=== PATIENT | male | born 1970 | race Caucasian/White ===

== ENCOUNTER 2022-01-24 22:11 | Observation (INO) | payer BC, SELFPAY ==
--- NOTE | ~2022-01-24 | CT_ITS ---
EXAMINATION: CT abdomen pelvis w con DATE: 01/25/2022 06:48 INDICATION: Buttock and groin abscess. TECHNIQUE: Computed tomography (CT) of the abdomen and pelvis was performed with 100 mL Omnipaque 350 intravenous contrast. Automated exposure control and iterative reconstruction technique were employe d. The dose-length product was 984.58 mGy-cm. COMPARISON: CT abdomen and pelvis 04/27/2016 FINDINGS: The visualized portions of the lung bases demonstrate mild atelectasis. No pleural effusion . The heart size is normal. No pericardial effusion. The liver, gallbladder, spleen, pancreas, and ad renal glands are normal. There is a 1 mm stone in right kidney. Left kidney is normal. The prostate i s mildly enlarged. There are no dilated loops of bowel. The appendix is not visualized. There is mild right external iliac lymphadenopathy, likely reactive. There is no free intraperitoneal fluid. There is subcutaneous fat stranding in the right buttock and perineum. No soft tissue gas. No drainable ab scess. There is mild thoracolumbar spondylosis. IMPRESSION: 1. Fat stranding in the right buttock and perineum, consistent with cellulitis. No soft tissue gas or drainable abscess. 2. Mild right external iliac lymphadenopathy, likely reactive. Reviewed, dictated and finalized at location A. [facility] [employer] OPERATOR
[2022-01-24 22:29] VITALS: BP 175/110; PULSE 122; RESP 18; TEMP 36.6; O2SAT 100
[2022-01-25] MEDS: SODIUM CHLORIDE 0.9% IV 1,000 ML 999 ML IV CONT (05:54)
[2022-01-25] MEDS: MORPHINE SULFATE (*CRX) 4 MG/ML INJ IV PUSH ×2 (05:54→13:44)
[2022-01-25 06:10] LABS: Basophils Absolute Auto 0.2 K/mm3 (0.0-0.1); Basophils Percent Auto 0.9 % (0.2-1.2); Eosinophils Absolute Auto 0.1 K/mm3 (0-0.3); Eosinophils Percent Auto 0.8 % (0-4.4); Hematocrit 39.9 % (42.0-52.0); Immature Granulocyte Absolute 0.32 K/mm3 (0.00-0.031); Immature Granulocyte Percent A 1.8 % (0-0.5); Lymphocytes Absolute Auto 1.24 K/mm3 (0.9-3.2); Mean Corpuscular HGB Conc 35.1 g/dl (32-36); Mean Corpuscular Hemoglobin 30.2 pg (26-34); Mean Platelet Volume 10.2 fl (7.4-10.4); Monocytes Absolute Auto 1.8 K/mm3 (0.1-0.6); Neutrophils Absolute Auto 14.1 K/mm3 (1.3-6.7); Neutrophils Percent Auto 79.5 % (45.5-73.1); Platelet Count Result 254 k/mm3 (150-375); Red Blood Count 4.64 M/mm3 (4.6-6.20); Red Cell Distribution Width 12.4 % (11.5-14.5); White Blood Count 17.7 K/mm3 (4.5-10.0)
[2022-01-25 06:18] LABS: Lactic Acid Reflex 1.2 mmol/L (0.7-2.0)
[2022-01-25 06:19] LABS: Anion Gap 10 mmol/L (8-16); Blood Urea Nitrogen 18 mg/dL (9-20); Calcium 8.4 mg/dL (8.4-10.2); Carbon Dioxide 27 mmol/L (22-30); Chloride 96 mmol/L (98-107); Estimated CRCL calculation 90 ml/min; Estimated Glomerular Filt Rate > 60; Glucose 258 mg/dL (65-110); Potassium 3.1 mmol/L (3.4-5.0); Sodium 133 mmol/L (137-145)
[2022-01-25 06:46] VITALS: BP 166/95; PULSE 100; RESP 18; O2SAT 98
--- NOTE | 2022-01-25 07:26 | ED.SKABFB ---
HPI - Skin/Abscess/Foreign Bdy General Chief complaint: Skin/Abscess/Foreign Body Stated complaint: abcess Time Seen by Provider: 01/25/22 05:21 History of Present Illness HPI narrative: Patient is a 51-year-old male who presents ER with infection to his right buttock. It originally started as a pimple which then enlarged over the last 4 days. He has been having fevers and chills. Has significant swelling of his buttock and pain with movement and sitting. The area is currently draining. No difficulty with defecation. He does feel like he has to urinate frequently. Related Data Home Medications Medication Instructions Recorded Confirmed Adults Multivitamin 1 tablet PO DAILY 01/25/22 01/25/22 famotidine 20 mg tablet (Pepcid AC) 20 mg PO DAILY 01/25/22 01/25/22 Allergies Allergy/AdvReac Type Severity Reaction Status Date / Time levofloxacin Allergy Unknown Unknown Verified 01/25/22 05:54 meperidine Allergy Unknown Hives Verified 01/25/22 05:54 Penicillins Allergy Unknown Swelling Verified 01/25/22 05:54 of Lip/Tongue/Throat Quinolones Allergy Unknown Redness of Verified 01/25/22 05:54 Skin Sulfa (Sulfonamide Allergy Unknown Unknown Verified 01/25/22 07:29 Antibiotics) loratadine AdvReac Unknown PALPITATIO Verified 01/25/22 05:54 NS Review of Systems Review of Systems: All systems reviewed & are unremarkable except as noted in HPI and below Constitutional: Constitutional: Denies chills, Denies fatigue and Denies fever(s) ENT: Denies nasal congestion and Denies sore throat Cardiovascular: Cardiovascular: Denies chest pain, Denies rapid heart rate and Denies radiating jaw, neck or arm pain Respiratory: Respiratory: Denies cough and Denies dyspnea Gastrointestinal: Gastrointestinal: Denies abdominal pain, Denies nausea and Denies vomiting Genitourinary: Genitourinary: Denies dysuria and Reports urinary frequency Integumentary/Breasts: Skin/Breast: Reports erythema PMFSH Past Medical History Medical History (Updated 01/25/22 @ 08:01 by Ananth Guillen MD) No significant past medical history Surgical History Surgical History (Updated 01/25/22 @ 07:59 by Ananth Guillen MD) No pertinent past surgical history Family History Family History (System 01/08/21 @ 09:15 by Rogelio Nava) Father Family history of diabetes mellitus in first degree relative Mother Family history of heart disease in male family member before age 55 Social History Social History (System 01/08/21 @ 09:15 by Rogelio Nava) Smoking status: Never smoker Second hand tobacco smoke exposure: Yes Alcohol intake: current Drinks per week: 1 Substance use: never Lack of Transportation: No Lack of Food: Never True Current Housing: I Have Housing Concerned About Future Housing: No Difficulty Paying Gas/Electric Bills: No Difficulty Paying for Meds: No Currently Unemployed: No Education: Associate Degree Difficulty w/ Childcare or Family Care: No Spiritual care concerns: No Exam Narrative: GENERAL: Well-appearing, well-nourished, and in no acute distress. HEAD: Normocephalic, atraumatic. EYES: PERRL and EOMI. ENT: Mucous membranes moist. CHEST: Clear to auscultation. No respiratory distress. HEART: Regular rate and rhythm. Normal peripheral pulses. ABDOMEN: Soft, nontender, nondistended. Right buttock cellulitis extending into the perineum. There is a small area of drainage but no fluctuant abscess. No tenderness at the rectum. EXTREMITIES: Normal range of motion. No edema. SKIN: Warm, dry, no rash. NEURO: Alert and oriented x3. PSYCH: Normal mood and affect. Course Course Emergency Course: Admit to hospitalist service. IV antibiotics ordered. Vital Signs Vital signs: Vital Signs Temperature 97.9 F 01/24/22 22:29 Pulse Rate 122 H 01/24/22 22:29 Respiratory Rate 18 01/24/22 22:29 Blood Pressure 175/110 H 01/24/22 22:29 Pulse Oximetry 100 1
--- NOTE | 2022-01-25 07:36 | PM.SD2 ---
Same Day Admit/Disch: HPI History of Present Illness Chief complaint: Cellulitis Narrative: Ishan Bell III is a 51 year old male who presented with buttock cellulitis to the ER discussed with the ER doc . Was planned for admission however due to unavailability of bed she was transferred to [facility] for admission. I did not physically see the patient here in this hospital. [facility] Past Medical History Medical History (Updated 02/03/22 @ 15:02 by Doug Shields MD) No significant past medical history Surgical History Surgical History (Updated 01/25/22 @ 07:59 by Ananth Guillen MD) No pertinent past surgical history Family History Family History (System 01/08/21 @ 09:15 by Rogelio Nava) Father Family history of diabetes mellitus in first degree relative Mother Family history of heart disease in male family member before age 55 Social History Social History (Updated 02/03/22 @ 14:46 by Leonora Fernandez MA) Smoking status: Never smoker Second hand tobacco smoke exposure: Yes Alcohol intake: current Drinks per week: 1 Substance use: never Lack of Transportation: No Lack of Food: Never True Current Housing: I Have Housing Concerned About Future Housing: No Difficulty Paying Gas/Electric Bills: No Difficulty Paying for Meds: No Currently Unemployed: No Education: Associate Degree Difficulty w/ Childcare or Family Care: No Gender identity (if verbalized by the patient): Male Spiritual care concerns: No Same Day Admit/Disch: Med Pre-admit Medications Home Medications Medication Instructions Recorded Confirmed Type Adults Multivitamin 1 tablet PO DAILY 01/25/22 01/25/22 History famotidine 20 mg tablet (Pepcid AC) 20 mg PO DAILY 01/25/22 01/25/22 History Saccharomyces boulardii 250 mg 250 mg PO TID #30 caps 02/01/22 Rx capsule (Florastor) blood sugar diagnostic (Advocate #50 ea 02/01/22 Rx Test Strips) blood-glucose meter (Advocate #1 ea 02/01/22 Rx Blood Glucose Monitor) doxycycline hyclate 100 mg tablet 100 mg PO Q12HR #20 tabs 02/01/22 Rx insulin glargine 100 unit/mL (3 10 unit (0.1 mL) subcut QPM #15 mL 02/01/22 Rx mL) subcutaneous pen (Lantus Solostar U-100 Insulin) insulin lispro 100 unit/mL 1 sliding scale dose subcut 02/01/22 Rx subcutaneous solution (Humalog USEASDIRECTD #10 mL U-100 Insulin) insulin syringe-needle U-100 1 mL #100 ea 02/01/22 Rx 25 x 1 lancets 30 gauge (Advocate Lancet) #100 ea 02/01/22 Rx metronidazole 250 mg tablet 500 mg PO Q8HR #21 tabs 02/01/22 Rx potassium chloride 20 mEq 40 meq PO DAILY@0800 #14 tabs 02/01/22 Rx tablet,extended release (K-Tab) tamsulosin 0.4 mg capsule 0.4 mg PO QAM #30 caps 02/01/22 Rx tramadol 50 mg tablet 50 mg PO Q6H PRN Pain Rated 4-6 02/01/22 Rx #20 tabs Ozempic 0.25 mg or 0.5 mg (2 0.25 mg (0.2 mL) subcut WEEKLY #3 02/03/22 02/03/22 Rx mg/1.5 mL) subcutaneous pen mL injector (semaglutide) hydrocodone 5 mg-acetaminophen 325 1 tablet PO Q8H PRN pain #14 tabs 02/03/22 02/03/22 Rx mg tablet metformin 1,000 mg tablet 1,000 mg PO BID #180 tabs 02/03/22 02/03/22 Rx Exam Narrative: Not examined DS: Summary Hospital Course Hospital Course: Got report from the ED doctor for admission and was started on IV antibiotics. He was getting boarded in the ER however due to unavailability of bed and availability of bed at [facility] decision was made to transfer the patient there. A call report to nurse practitioner at [facility] and she accepted the transfer. He was eventually transferred to [facility]. I did not physically see the patient Time Spent with Patient Time attestation: Total time spent providing and/or coordinating discharge services: 20 minutes DS: Admitting Diagnosis Discharge Date 01/25/22 Admitting Diagnosis Buttock cellulitis Discharge Plan Discharge Consulting providers: Zoran Rankin ; Blair Nazario
[2022-01-25] MEDS: metroNIDAZOLE 500 MG/ISO 100ML 500 MG/100 ML BAG 100 MG IVPB (08:05)
[2022-01-25] MEDS: HYDROmorphone HCL INJ (*CRX) 1 MG/ML SYR IV PUSH (08:15)
[2022-01-25 08:40] LABS: Influenza A QL RT-PCR Negative (Negative); Influenza B QL RT-PCR Negative (Negative); SARS-CoV-2 RNA PCR Negative
--- NOTE | 2022-01-25 13:12 | PC.NURSE ---
Report call to Stephanie at [facility] second floor.
[2022-01-25 13:46] VITALS: BP 150/99; PULSE 100; RESP 22; O2SAT 100
== END 2022-01-25 14:00 | disposition short-term general hospital (02) ==
LOC: ANHED 01-25 08:00 → ANH3MEDSUR 01-25 10:24
PROVIDERS: Admitting Provider Internal Medicine; Emergency Provider Emergency Medicine; Visit Provider Internal Medicine
DX: L03.317 Cellulitis of buttock (principal); R59.1 Generalized enlarged lymph nodes; R35.0 Frequency of micturition; F10.90 Alcohol use, unspecified, uncomplicated; Z79.4 Long term (current) use of insulin; Z79.84 Long term (current) use of oral hypoglycemic drugs; Z79.899 Other long term (current) drug therapy; Z87.891 Personal history of nicotine dependence
CPT/HCPCS: 36415; 74177; 80048; 83036; 83605; 85025; 87636; 96361; 96365; 96366; 96367; 96368; 96375; 96376; 99285; G0378; J0692; J1170; J2270; J3370; J7030; Q9967

== ENCOUNTER 2022-01-25 14:34 | Inpatient (IN) | payer BC, SELFPAY ==
--- NOTE | 2022-01-25 14:42 | PC.NURSE ---
Patient oriented to hospital environment, room number, call light, visitor policies, and use of television. Patient advised on precautions to use when leaving the room. Patient has a blue cap and cell phone and no other valuable possessions present at the hospital.
[2022-01-25 14:43] VITALS: BP 165/95; PULSE 93; RESP 16; TEMP 37.4; O2SAT 96; BMI 36.3
--- NOTE | 2022-01-25 15:55 | PC.NURSE ---
Patient arrived to [facility] via ambulance, accompanied by grey goods tester. Patient able to transfer independently from stretcher to bed.
[2022-01-25 16:00] VITALS: BP 135/75; PULSE 93; RESP 16; TEMP 36.9; O2SAT 94
[2022-01-25] MEDS: HYDROmorphone HCL INJ (*CRX) 2 MG/ML VIAL 1 MG IV PUSH ×3 (16:32→23:38)
--- NOTE | 2022-01-25 17:24 | PC.NURSE ---
Patient has a large area of cellulitis starting in the inner right buttock and winding down between the patient's legs on the right side of the groin area. Area is red, hot and moist. Patient c/o severe pain to the area. IV ABT and pain medications continue.
[2022-01-26] VITALS: BP 137/74; PULSE 92; RESP 16; TEMP 38.1; O2SAT 98
[2022-01-26] MEDS: HYDROmorphone HCL INJ (*CRX) 2 MG/ML VIAL 1 MG IV PUSH (03:21)
[2022-01-26] MEDS: HYDROcodone/acetaminophen (*CRX) 10-325 MG TABLET 1 TAB PO ×4 (04:55→18:37)
[2022-01-26 05:28] LABS: Hematocrit 38.5 % (40.0-54.0); Hemoglobin 13.6 g/dL (14.0-18.0); Mean Corpuscular HGB Conc 35.3 g/dL (32.0-36.0); Mean Corpuscular Hemoglobin 30.2 pg (27.0-31.0); Mean Corpuscular Volume 85.4 fL (78.0-102.0); Mean Platelet Volume 10.3 fl (8.7-11.0); Platelet Count Result 267 K/mm3 (150-420); Red Blood Count 4.51 M/mm3 (4.70-6.10); Red Cell Distribution Width 11.9 % (11.6-14.4); White Blood Count 19.8 K/mm3 (4.8-10.8)
[2022-01-26 05:54] LABS: Alanine Aminotransferase 43 U/L (16-63); Albumin Level 2.9 g/dL (3.4-5.0); Alkaline Phosphatase 236 U/L (46-116); Anion Gap 13 mmol/L (8-16); Aspartate Amino Transferase 36 U/L (15-37); Bilirubin,Total 0.9 mg/dL (0.00-1.00); Blood Urea Nitrogen 15 mg/dL (7-18); Calcium 8.5 mg/dL (8.5-10.1); Carbon Dioxide 27 mmol/L (21-32); Chloride 93 mmol/L (98-108); Estimated CRCL calculation 85 ml/min; Estimated Glomerular Filt Rate > 60; Glucose 252 mg/dL (70-99); Magnesium 1.8 mg/dL (1.8-2.4); Osmolality Calculated 285 mOsm/kg (285-295); Potassium 2.9 mmol/L (3.5-5.1); Sodium 133 mmol/L (136-145); Total Protein 7.4 g/dL (6.4-8.2)
[2022-01-26 08:00] VITALS: BP 164/100; PULSE 84; RESP 18; TEMP 36.6; O2SAT 95
--- NOTE | 2022-01-26 08:48 | PM.IMHP ---
H&P: HPI History of Present Illness Date/Time: 01/26/22 08:48 Chief Complaint: pain and drainage to right cheek of the buttocks Narrative: This iis a 50-year-old male who presented to [facility] due to pain and drainage on his right cheek of his buttocks. Patient has no significant past medical history. According to patient he had a pimple to his right buttocks. patient notes that on Tuesday he started to experience flu like symptoms such as chills, body aches, fever 105 and noticed that the site to his right cheek had enlarged in size in heart and was tender to touch., . Patient's vital signs 137/74, 92, 16, 100.6, 98 on room air, WBC 17.7, hemoglobin 14.0, hematocrit 39.9, platelets 254, sodium 133, potassium 3.1, BUN 18, creatinine 1.00, lactic acid 1.2, glucose 28 CT of the abdomen indicates right buttocks and perineum cellulitis no drainable abscess. Patient admitted for cellulitis will be given IV antibiotic treatment with pain control. patient continues to have pain to his buttocks area but is reluctant to take any pain medication due to his fear of having constipation. patient educated on pain control Review of Systems Review of Systems: A 14 organ system Review of Systems was performed and pertinent positives included in the HPI, otherwise remaining ROS is negative. [facility] Past Medical History Medical History (Updated 01/26/22 @ 10:02 by URBANO Montano) No significant past medical history Surgical History Surgical History (Updated 01/25/22 @ 07:59 by Ananth Guillen MD) No pertinent past surgical history Family History Family History (System 01/08/21 @ 09:15 by Rogelio Nava) Father Family history of diabetes mellitus in first degree relative Mother Family history of heart disease in male family member before age 55 Social History Social History (System 01/08/21 @ 09:15 by Rogelio Nava) Smoking status: Never smoker Second hand tobacco smoke exposure: Yes Alcohol intake: current Drinks per week: 1 Substance use: never Lack of Transportation: No Lack of Food: Never True Current Housing: I Have Housing Concerned About Future Housing: No Difficulty Paying Gas/Electric Bills: No Difficulty Paying for Meds: No Currently Unemployed: No Education: Associate Degree Difficulty w/ Childcare or Family Care: No Spiritual care concerns: No Meds Home Medications and Allergies Home Medications Medication Instructions Recorded Confirmed Type Adults Multivitamin 1 tablet PO DAILY 01/25/22 01/25/22 History famotidine 20 mg tablet (Pepcid AC) 20 mg PO DAILY 01/25/22 01/25/22 History Allergies Allergy/AdvReac Type Severity Reaction Status Date / Time levofloxacin Allergy Unknown Unknown Verified 01/25/22 05:54 meperidine Allergy Unknown Hives Verified 01/25/22 05:54 Penicillins Allergy Unknown Swelling Verified 01/26/22 09:56 of Lip/Tongue/Throat Quinolones Allergy Unknown Redness of Verified 01/25/22 05:54 Skin Sulfa (Sulfonamide Allergy Unknown Unknown Verified 01/25/22 07:29 Antibiotics) loratadine AdvReac Unknown PALPITATIO Verified 01/25/22 05:54 NS Vital Signs Vital Signs - 24 hr 01/25/22 14:43 01/25/22 14:43 01/25/22 16:00 Temperature 99.3 F 98.4 F Pulse Rate 93 93 Respiratory Rate 16 16 Blood Pressure 165/95 H 135/75 Pulse Oximetry 96 94 Oxygen Delivery Room Air Room Air Room Air 01/26/22 00:00 Temperature 100.6 F H Pulse Rate 92 Respiratory Rate 16 Blood Pressure 137/74 Pulse Oximetry 98 Oxygen Delivery Room Air Exam Narrative: GENERAL: This is a well-nourished, well-developed patient, in no apparent distress. HEAD: normocephalic, atraumatic. EYES: PERRL. Sclera clear/white. Vision is grossly intact. EARS: External ears normal, auditory canals clear and without drainage, TMs normal without perforation. Hearing grossly intact. NOSE: External nose normal with no obvious
[2022-01-26] MEDS: SACCHAROMYCES BOULARDII 250 MG CAPSULE PO ×3 (09:26→16:44)
[2022-01-26] MEDS: FAMOTIDINE 20 MG TABLET PO (09:27)
--- NOTE | 2022-01-26 09:58 | PC.NURSE ---
Patient cleansed own buttocks in bathroom and applied 4x4 himself to keep drainage in place, wound culture obtained, norco given for pain, to call if not helping and will assess what else can be given, vanco infusing
--- NOTE | 2022-01-26 11:04 | P.PNCROSS_ITS ---
Event Note Event Note Event Note: patient will start on Jardiance , will not start glipizide due to allergy to s ulfa
--- NOTE | 2022-01-26 11:22 | IDPHARM ---
Subjective Pharmacy was consulted by Álvaro Paul regarding infectious diseases for Ishan Bell III. Ishan Bell III is a 51 year old M with concerns regarding Cellulitis. Background The patient is currently receiving Vancomycin at this time but also had received metronidazole and cefepime in the ER per the provider. The patient's PMH included having a pimple on their bottom that has then popped with the cellulitis remaining. Patient reported fever and flu like symptoms at home and has a WBC of 19.8 here with a CrCl estimated to be >60 mL/min. Assessment/Recommendation/Discussion Spoke with the provider regarding this patient. Patient has cellulitis with previous purulence. Continue vancomycin as to cover staphylococcus spp. and less likely streptococcus species. Given patient allergies, options are limited, perhaps look to de-escalate to a tetracycline when appropriate if appropriate. If the patient does not approve can consider re-broadening with those agents given in the ER as, per provider, the patient had tolerated them. Thank you for the interesting consult. Almas Cox, PharmD Infectious Disease/Antimicrobial Stewardship Pharmacist 01/26/22; 1121
[2022-01-26] MEDS: POTASSIUM CHLORIDE 20 MEQ TABLET 40 MEQ PO (11:26)
[2022-01-26] MEDS: DOCUSATE SODIUM 100 MG CAPSULE PO ×2 (11:27→20:23)
[2022-01-26 11:30] LABS: Glucose Point of Care 321 mg/dl (65-105)
--- NOTE | 2022-01-26 11:39 | PC.NURSE ---
changed from observation to IP status, education on diabetes and jardiance given to patient to review
[2022-01-26] MEDS: traMADol HCL (*CRX) 50 MG TABLET PO ×2 (12:37→20:23)
[2022-01-26 16:00] VITALS: BP 134/72; PULSE 78; RESP 18; TEMP 36.1; O2SAT 96
[2022-01-26 16:46] LABS: Glucose Point of Care 274 mg/dl (65-105)
[2022-01-26 20:38] LABS: Glucose Point of Care 309 mg/dl (65-105)
[2022-01-26 20:40] LABS: Vancomycin Trough 8.3 ug/mL (10.0-15.0)
[2022-01-26 22:35] LABS: Glucose Point of Care 258 mg/dl (65-105)
[2022-01-26 23:30] VITALS: BP 129/74; PULSE 91; RESP 16; TEMP 36.2; O2SAT 98
[2022-01-27] MEDS: HYDROcodone/acetaminophen (*CRX) 10-325 MG TABLET 1 TAB PO ×5 (00:18→19:32)
[2022-01-27] MEDS: traMADol HCL (*CRX) 50 MG TABLET PO ×2 (05:08→23:16)
[2022-01-27 05:31] LABS: Hematocrit 37.7 % (40.0-54.0); Mean Corpuscular HGB Conc 34.5 g/dL (32.0-36.0); Mean Corpuscular Hemoglobin 29.1 pg (27.0-31.0); Mean Corpuscular Volume 84.5 fL (78.0-102.0); Mean Platelet Volume 9.9 fl (8.7-11.0); Platelet Count Result 279 K/mm3 (150-420); Red Blood Count 4.46 M/mm3 (4.70-6.10); Red Cell Distribution Width 11.9 % (11.6-14.4); White Blood Count 16.8 K/mm3 (4.8-10.8)
[2022-01-27 05:48] LABS: Alanine Aminotransferase 47 U/L (16-63); Albumin Level 2.6 g/dL (3.4-5.0); Alkaline Phosphatase 234 U/L (46-116); Anion Gap 11 mmol/L (8-16); Aspartate Amino Transferase 31 U/L (15-37); Bilirubin,Total 0.8 mg/dL (0.00-1.00); Blood Urea Nitrogen 15 mg/dL (7-18); Calcium 8.3 mg/dL (8.5-10.1); Carbon Dioxide 28 mmol/L (21-32); Chloride 94 mmol/L (98-108); Estimated CRCL calculation 92 ml/min; Estimated Glomerular Filt Rate > 60; Glucose 279 mg/dL (70-99); Osmolality Calculated 286 mOsm/kg (285-295); Potassium 3.3 mmol/L (3.5-5.1); Sodium 133 mmol/L (136-145); Total Protein 7.2 g/dL (6.4-8.2)
[2022-01-27 08:00] VITALS: BP 134/74; PULSE 78; RESP 16; TEMP 36.6; O2SAT 96
[2022-01-27 08:05] LABS: Glucose Point of Care 321 mg/dl (65-105)
[2022-01-27] MEDS: SACCHAROMYCES BOULARDII 250 MG CAPSULE PO ×3 (09:05→17:31)
[2022-01-27] MEDS: ENOXAPARIN 40 MG/0.4 ML SYRINGE SUB-Q (09:05)
[2022-01-27] MEDS: POTASSIUM CHLORIDE 20 MEQ TABLET 40 MEQ PO (09:06)
[2022-01-27] MEDS: EMPAGLIFLOZIN 10 MG TABLET PO (09:07)
[2022-01-27] MEDS: DOCUSATE SODIUM 100 MG CAPSULE PO ×2 (09:07→20:20)
[2022-01-27] MEDS: FAMOTIDINE 20 MG TABLET PO (09:07)
--- NOTE | 2022-01-27 13:43 | WPDPN ---
Progress Note: A&P Assessment and Plan (1) Cellulitis: Code(s): L03.90 - Cellulitis, unspecified Status: Acute Assessment and Plan: imaging indicates right buttock and perineum cellulitis patient was given Flagyl along with vancomycin and cefepime in the emergency department. patient has allergy to penicillin did not have a reaction to cefepime. if patient condition did not improve we were asked that the pain. consult Infectious Disease and assist as recommendations for now we will do vancomycin patient febrile with elevated white count 17.7>19.8 continue wound care lactic acid 1.2 sitz bath (2) Electrolyte imbalance: Code(s): E87.8 - Other disorders of electrolyte and fluid balance, not elsewhere classified Status: Acute Assessment and Plan: potassium 2.9 , sodium 133 replaces supplement CMP in a.m. (3) Diabetes mellitus: Code(s): E11.9 - Type 2 diabetes mellitus without complications Status: Acute Assessment and Plan: newly diagnosed A1c 11.0, blood sugar 252 started diabetic diet with Accu-Cheks sliding scale and hypoglycemic protocol will start glipizide educated on diabetes will need to follow up with primary care physician increased insulin and added lantus Subjective Date/time seen: 01/27/22 13:43 Interval history: patient still having a lot of pain and difficulty with some urination more than likely due to then go Urgent med causing pressure when he is not able to urinate appropriately Rollins catheter has been added. I have also sent a urine down just to make sure there is no infection going on. Patient was found to have some retention 800 mL postvoid. Patient has been doing Sitz bath we will continue with IV antibiotics blood sugar control and monitoring. Awaiting wound culture results will plan for possible halfway antibiotic Exam Narrative: GENERAL: This is a well-nourished, well-developed patient, in no apparent distress. HEAD: normocephalic, atraumatic. EYES: PERRL. Sclera clear/white. Vision is grossly intact. EARS: External ears normal, auditory canals clear and without drainage, TMs normal without perforation. Hearing grossly intact. NOSE: External nose normal with no obvious nasal discharge, nares without redness, no rhinorrhea. THROAT: Mucous membranes moist, posterior pharynx clear. NECK: Neck supple, non-tender without lymphadenopathy, masses or thyromegaly. CARDIOVASCULAR: Regular rate and rhythm without murmurs, gallops, or rubs. RESPIRATORY: Clear to auscultation. Breath sounds equal bilaterally. No wheezes, rales, or rhonchi. GASTROINTESTINAL: Abdomen soft, non-tender, buttock swollen escorted enlarged and engorged in groin area SKIN: right buttock and perineum with edema and erythema tender to touch brownish drainage NEURO: awake, alert, and oriented to person, place and time. There were no obvious focal neurologic abnormalities. EXTREMITIES: Normal range of motion. No edema. No calf tenderness. Objective Data Vital Signs Vital Signs: Vital Signs - 24 hr 01/26/22 16:00 01/26/22 23:30 Temperature 97 F L 97.2 F L Pulse Rate 78 91 Respiratory Rate 18 16 Blood Pressure 134/72 129/74 Pulse Oximetry 96 98 Oxygen Delivery Room Air Room Air Intake/Output Intake/Output: Intake & Output 01/24/22 01/25/22 01/26/22 01/27/22 23:59 23:59 23:59 23:59 Intake Total 1090 3170 2010 Output Total 1200 125 Balance 1090 1970 1885 Meds/Results Medications: Active Medications Generic Name Dose Route Start Last Admin Trade Name Freq PRN Reason Stop Dose Admin Acetaminophen 1,000 mg 01/25/22 15:27 Acetaminophen 500 Mg Tablet PO Q4H PRN Mild Pain (1-3) or Fever Hydrocodone Bitart/Acetaminophen 1 tab 01/26/22 08:47 01/27/22 13:40 Hydrocodone/Acetaminophen (*Crx) 10-325 Mg Tablet PO 1 tab Q4H PRN Administration Pain Rated 7-10 Dextrose 12.5 gm 01/27/22
[2022-01-27 15:17] LABS: Add Urine Microscopic? YES; Appearance Urine Clear (Clear); Bilirubin Urine Negative (Negative); Blood Urine Negative (Negative); Color Urine Yellow (Yellow); Glucose Urine UA 2+ (Negative); Ketones Urine 2+ (Negative); Leukocyte Esterase Ur Negative LEU/UL (Negative); Nitrate Urine Negative (Negative); Protein Urine Negative (Negative); Urobilinogen Urine 0.2 mg/dL (0.2-1.0)
[2022-01-27 15:30] LABS: Bacteria Urine Trace /hpf; RBC Urine None seen /hpf (0-2); Squamous Epithelial Cell Urine Few /hpf (Few); WBC Urine None seen /hpf (0-3)
[2022-01-27 15:31] LABS: Mucus Urine Few /lpf
[2022-01-27 16:00] VITALS: BP 128/74; PULSE 90; RESP 18; TEMP 37.3; O2SAT 97
[2022-01-27 16:34] LABS: Glucose Point of Care 182 mg/dl (65-105)
--- NOTE | 2022-01-27 18:05 | PC.NURSE ---
patient c/o this am that he had a lot of pressure and discomfort in lower abd. voided x's in urinal with only 200 ml dk richelle urine. pain meds not touching pain. r buttock into scrotum remains bright red and purple can feel heat and firmness from scrotum back into r buttock. at this time there is no drainage. metal machine setter aware and new orders. bladder scanned and 887 ml urine in bladder. schilling inserted with immediate return of 1250 ml of richelle urine. patient claims some relief in abd. sitz bath done this am. claims it feels good. still no drainage at this time. there is sloughing of skin noted. cont to lay on r side. did pack gauze into cheek fold. after lunch patient has slept most afternoon. denies need for pain meds this evening after supper. still very tender to touch. patient claims at times there is slight drainage of brownish/red/white area is cleansed and new gauze applied.
[2022-01-27] MEDS: INSULIN GLARGINE (*BKC) 100 UNITS/ML 10 UNITS SUB-Q (20:20)
[2022-01-27 20:24] LABS: Glucose Point of Care 235 mg/dl (65-105)
[2022-01-27 21:23] LABS: Vancomycin Trough 15.2 ug/mL (10.0-15.0)
[2022-01-27] MEDS: traZODone HCL 50 MG TABLET 100 MG PO (23:15)
[2022-01-28] VITALS: BP 149/81; PULSE 91; RESP 17; TEMP 36.4; O2SAT 96
[2022-01-28] MEDS: HYDROcodone/acetaminophen (*CRX) 10-325 MG TABLET 1 TAB PO ×4 (03:52→19:29)
[2022-01-28 08:00] VITALS: BP 145/76; PULSE 96; RESP 16; TEMP 36.1; O2SAT 98
[2022-01-28 08:58] LABS: Glucose Point of Care 194 mg/dl (65-105)
[2022-01-28] MEDS: POTASSIUM CHLORIDE 20 MEQ TABLET 40 MEQ PO (09:10)
[2022-01-28] MEDS: SACCHAROMYCES BOULARDII 250 MG CAPSULE PO ×3 (09:10→17:38)
[2022-01-28] MEDS: ENOXAPARIN 40 MG/0.4 ML SYRINGE SUB-Q (09:10)
[2022-01-28] MEDS: DOCUSATE SODIUM 100 MG CAPSULE PO ×2 (09:11→20:56)
[2022-01-28] MEDS: FAMOTIDINE 20 MG TABLET PO (09:11)
[2022-01-28] MEDS: EMPAGLIFLOZIN 10 MG TABLET PO (09:14)
[2022-01-28] MEDS: LIDOCAINE HCL 1% LOCAL INJ 10 ML VIAL XX (10:30)
[2022-01-28] MEDS: HYDROmorphone HCL INJ (*CRX) 2 MG/ML VIAL 1 MG IV PUSH (10:45)
[2022-01-28 11:37] LABS: Hematocrit 38.6 % (40.0-54.0); Hemoglobin 13.9 g/dL (14.0-18.0); Mean Corpuscular Hemoglobin 30.2 pg (27.0-31.0); Mean Corpuscular Volume 83.7 fL (78.0-102.0); Mean Platelet Volume 9.6 fl (8.7-11.0); Platelet Count Result 337 K/mm3 (150-420); Red Blood Count 4.61 M/mm3 (4.70-6.10); White Blood Count 16.6 K/mm3 (4.8-10.8)
[2022-01-28] MEDS: traMADol HCL (*CRX) 50 MG TABLET PO ×2 (11:51→18:16)
--- NOTE | 2022-01-28 11:56 | WPDPN ---
Progress Note: A&P Assessment and Plan (1) Cellulitis: Code(s): L03.90 - Cellulitis, unspecified Status: Acute Assessment and Plan: imaging indicates right buttock and perineum cellulitis patient was given Flagyl along with vancomycin and cefepime in the emergency department. patient has allergy to penicillin did not have a reaction to cefepime. if patient condition did not improve we were asked that the pain. consult Infectious Disease and assist as recommendations for now we will do vancomycin patient febrile with elevated white count 17.7>19.8 continue wound care lactic acid 1.2 sitz bath ID today see procedure note (2) Electrolyte imbalance: Code(s): E87.8 - Other disorders of electrolyte and fluid balance, not elsewhere classified Status: Acute Assessment and Plan: potassium 2.9 , sodium 133 replaces supplement CMP in a.m. (3) Diabetes mellitus: Code(s): E11.9 - Type 2 diabetes mellitus without complications Status: Acute Assessment and Plan: newly diagnosed A1c 11.0, blood sugar 252 started diabetic diet with Accu-Cheks sliding scale and hypoglycemic protocol will start glipizide educated on diabetes will need to follow up with primary care physician increased insulin and added lantus Subjective Date/time seen: 01/28/22 11:56 Interval history: This is a 51-year-old male who has cellulitis of the right buttocks that is inflamed with erythema that is fluctuant and painful draining some brown is pus at this time the decision has been made to do an I&D patient has signed consent. Review of Systems Review of Systems: right buttocks erythema Exam Narrative: GENERAL: This is a well-nourished, well-developed patient, in no apparent distress. HEAD: normocephalic, atraumatic. EYES: PERRL. Sclera clear/white. Vision is grossly intact. EARS: External ears ghazala Hearing grossly intact. NOSE: External nose normal with no obvious nasal discharge THROAT: Mucous membranes moist RESPIRATORY: Clear to auscultation. Breath sounds equal bilaterally. No wheezes, rales, or rhonchi. GASTROINTESTINAL: Abdomen soft, non-tender, buttock swollen escorted enlarged and engorged in groin area SKIN: right buttock and perineum with edema and erythema tender to touch brownish drainage NEURO: awake, alert, and oriented to person, place and time. There were no obvious focal neurologic abnormalities. EXTREMITIES: Normal range of motion. No edema. No calf tenderness. Objective Data Vital Signs Vital Signs: Vital Signs - 24 hr 01/27/22 16:00 01/28/22 00:00 01/28/22 08:00 Temperature 99.2 F 97.5 F L 97 F L Pulse Rate 90 91 96 Respiratory Rate 18 17 16 Blood Pressure 128/74 149/81 H 145/76 H Pulse Oximetry 97 96 98 Oxygen Delivery Room Air Room Air Room Air Intake/Output Intake/Output: Intake & Output 01/25/22 01/26/22 01/27/22 01/28/22 23:59 23:59 23:59 23:59 Intake Total 1090 3170 5330 2610 Output Total 1200 3625 2200 Balance 1090 1970 1705 410 Meds/Results Medications: Active Medications Generic Name Dose Route Start Last Admin Trade Name Freq PRN Reason Stop Dose Admin Acetaminophen 1,000 mg 01/25/22 15:27 Acetaminophen 500 Mg Tablet PO Q4H PRN Mild Pain (1-3) or Fever Hydrocodone Bitart/Acetaminophen 1 tab 01/26/22 08:47 01/28/22 09:11 Hydrocodone/Acetaminophen (*Crx) 10-325 Mg Tablet PO 1 tab Q4H PRN Administration Pain Rated 7-10 Dextrose 12.5 gm 01/27/22 11:22 Dextrose 50% 25 Gm/50 Ml Syringe IV PUSH PRN PRN Hypoglycemia Protocol Docusate Sodium 100 mg 01/26/22 09:00 01/28/22 09:11 Docusate Sodium 100 Mg Capsule PO 100 mg Q12HR JO Administration Empagliflozin 10 mg 01/27/22 09:00 01/28/22 09:14 Empagliflozin 10 Mg Tablet PO 10 mg DAILY JO Administration Enoxaparin Sodium 40 mg 01/26/22 09:00 01/28/22 09:10 Enoxaparin
[2022-01-28 11:59] LABS: Glucose Point of Care 177 mg/dl (65-105)
[2022-01-28 12:02] LABS: Anion Gap 12 mmol/L (8-16); Blood Urea Nitrogen 15 mg/dL (7-18); Calcium 8.6 mg/dL (8.5-10.1); Carbon Dioxide 27 mmol/L (21-32); Chloride 96 mmol/L (98-108); Estimated CRCL calculation 89 ml/min; Estimated Glomerular Filt Rate > 60; Glucose 197 mg/dL (70-99); Osmolality Calculated 285 mOsm/kg (285-295); Potassium 3.4 mmol/L (3.5-5.1); Sodium 135 mmol/L (136-145)
--- NOTE | 2022-01-28 12:02 | PM.EVENT ---
Event Note Event Note Event Note: PRE-OP DIAGNOSIS: Cellulitis of right buttock POST-OP DIAGNOSIS: Same PROCEDURE: incision and drainage of abscess Performing Physician:Mirna MAYBERRY Consent form filled out by patient PROCEDURE: A timeout protocol was performed prior to initiating the procedure. The area was prepared and draped in the usual, sterile manner. The site was anesthetized with 1% lidocaine 2 linear incision along the local skin lines was made and the purulent with dark drainage material expressed. The abscess was explored thoroughly and sequestered pockets were opened. Bleeding was minimal. Followup: The patient tolerated the procedure well without complications. Standard post-procedure care is explained precautions are given.
[2022-01-28 16:00] VITALS: BP 136/79; PULSE 99; RESP 18; TEMP 36.3; O2SAT 100
[2022-01-28 17:13] LABS: Glucose Point of Care 213 mg/dl (65-105)
[2022-01-28 19:14] VITALS: TEMP 36.3
[2022-01-28 19:46] VITALS: PULSE 99; RESP 18; O2SAT 100
[2022-01-28] MEDS: LORazepam INJ (*CRX) 2 MG/ML VIAL 1 MG IV PUSH (20:55)
[2022-01-28] MEDS: traZODone HCL 50 MG TABLET 100 MG PO (20:56)
[2022-01-28 21:00] LABS: Glucose Point of Care 202 mg/dl (65-105)
[2022-01-28] MEDS: INSULIN GLARGINE (*BKC) 100 UNITS/ML 10 UNITS SUB-Q (22:51)
[2022-01-29] VITALS: BP 148/82; PULSE 106; RESP 16; TEMP 36.7; O2SAT 98
[2022-01-29] MEDS: traMADol HCL (*CRX) 50 MG TABLET PO ×3 (03:08→20:51)
[2022-01-29 05:30] LABS: Estimated CRCL calculation 84 ml/min; Estimated Glomerular Filt Rate > 60
[2022-01-29] MEDS: HYDROcodone/acetaminophen (*CRX) 10-325 MG TABLET 1 TAB PO ×4 (05:30→21:30)
[2022-01-29 08:00] VITALS: BP 132/73; PULSE 101; RESP 16; TEMP 36.5; O2SAT 93
[2022-01-29 08:42] LABS: Glucose Point of Care 216 mg/dl (65-105)
[2022-01-29] MEDS: POTASSIUM CHLORIDE 20 MEQ TABLET 40 MEQ PO (10:01)
[2022-01-29] MEDS: EMPAGLIFLOZIN 10 MG TABLET PO (10:01)
[2022-01-29] MEDS: SACCHAROMYCES BOULARDII 250 MG CAPSULE PO ×3 (10:01→17:22)
[2022-01-29] MEDS: ENOXAPARIN 40 MG/0.4 ML SYRINGE SUB-Q (10:02)
[2022-01-29] MEDS: FAMOTIDINE 20 MG TABLET PO (10:02)
[2022-01-29] MEDS: DOCUSATE SODIUM 100 MG CAPSULE PO (10:02)
[2022-01-29 11:28] LABS: Hematocrit 38.9 % (40.0-54.0); Hemoglobin 13.3 g/dL (14.0-18.0); Mean Corpuscular HGB Conc 34.2 g/dL (32.0-36.0); Mean Corpuscular Volume 87.8 fL (78.0-102.0); Mean Platelet Volume 10.1 fl (8.7-11.0); Platelet Count Result 339 K/mm3 (150-420); Red Blood Count 4.43 M/mm3 (4.70-6.10); Red Cell Distribution Width 12.4 % (11.6-14.4); White Blood Count 18.9 K/mm3 (4.8-10.8)
[2022-01-29 11:38] LABS: Alanine Aminotransferase 59 U/L (16-63); Albumin Level 2.7 g/dL (3.4-5.0); Alkaline Phosphatase 248 U/L (46-116); Anion Gap 12 mmol/L (8-16); Aspartate Amino Transferase 36 U/L (15-37); Bilirubin,Total 0.7 mg/dL (0.00-1.00); Blood Urea Nitrogen 14 mg/dL (7-18); Calcium 8.4 mg/dL (8.5-10.1); Carbon Dioxide 25 mmol/L (21-32); Chloride 95 mmol/L (98-108); Estimated CRCL calculation 84 ml/min; Estimated Glomerular Filt Rate > 60; Glucose 155 mg/dL (70-99); Osmolality Calculated 277 mOsm/kg (285-295); Potassium 3.5 mmol/L (3.5-5.1); Sodium 132 mmol/L (136-145); Total Protein 7.3 g/dL (6.4-8.2)
[2022-01-29 11:47] LABS: Glucose Point of Care 176 mg/dl (65-105)
--- NOTE | 2022-01-29 13:59 | WPDPN ---
Progress Note: A&P Assessment and Plan (1) Cellulitis: Code(s): L03.90 - Cellulitis, unspecified Status: Acute Assessment and Plan: imaging indicates right buttock and perineum cellulitis patient was given Flagyl along with vancomycin and cefepime in the emergency department. patient has allergy to penicillin did not have a reaction to cefepime. if patient condition did not improve we were asked that the pain. consult Infectious Disease and assist as recommendations for now we will do vancomycin patient febrile with elevated white count 17.7>19.8 continue wound care lactic acid 1.2 sitz bath ID today see procedure note Culture shows MRSA and VAncomycin is adequate treatment for CS (2) Electrolyte imbalance: Code(s): E87.8 - Other disorders of electrolyte and fluid balance, not elsewhere classified Status: Acute Assessment and Plan: potassium 2.9 , sodium 133 replaces supplement CMP in a.m. (3) Diabetes mellitus: Code(s): E11.9 - Type 2 diabetes mellitus without complications Status: Acute Assessment and Plan: newly diagnosed A1c 11.0, blood sugar 252 started diabetic diet with Accu-Cheks sliding scale and hypoglycemic protocol will start glipizide educated on diabetes will need to follow up with primary care physician increased insulin and added lantus Subjective Date/time seen: 01/29/22 13:59 Interval history: patient remains afebrile and he has less swelling noted with his cellulitis and continues to have less swelling. Patient pain is less and he has been showering and allowing the fluids to flow down each night at this time patient is resting well and drinking plenty of fluids we will remove schilling in the morning to see if he is able to urinate he has MRSA growing at this time. Exam Narrative: GENERAL: This is a well-nourished, well-developed patient, in no apparent distress. HEAD: normocephalic, atraumatic. EYES: PERRL. Sclera clear/white. Vision is grossly intact. EARS: External ears ghazala Hearing grossly intact. NOSE: External nose normal with no obvious nasal discharge THROAT: Mucous membranes moist RESPIRATORY: Clear to auscultation. Breath sounds equal bilaterally. No wheezes, rales, or rhonchi. GASTROINTESTINAL: Abdomen soft, non-tender, buttock swollen escorted enlarged and engorged area is bruised and boggy not as swollen in groin area schilling remains in place with clear yellow urine note.d SKIN: right buttock and perineum with edema and erythema tender to touch brownish drainage NEURO: awake, alert, and oriented to person, place and time. There were no obvious focal neurologic abnormalities. EXTREMITIES: Normal range of motion. No edema. No calf tenderness. Objective Data Vital Signs Vital Signs: Vital Signs - 24 hr 01/28/22 16:00 01/28/22 19:14 01/28/22 19:46 Temperature 97.4 F L 97.4 F L Pulse Rate 99 99 Respiratory Rate 18 18 Blood Pressure 136/79 Pulse Oximetry 100 100 Oxygen Delivery Room Air Room Air 01/29/22 00:00 01/29/22 08:00 Temperature 98.0 F 97.7 F Pulse Rate 106 H 101 H Respiratory Rate 16 16 Blood Pressure 148/82 H 132/73 Pulse Oximetry 98 93 Oxygen Delivery Room Air Room Air Intake/Output Intake/Output: Intake & Output 01/26/22 01/27/22 01/28/22 01/29/22 23:59 23:59 23:59 23:59 Intake Total 3170 5330 5890 2940 Output Total 1200 3625 5300 2750 Balance 1970 1705 590 190 Meds/Results Medications: Active Medications Generic Name Dose Route Start Last Admin Trade Name Freq PRN Reason Stop Dose Admin Acetaminophen 1,000 mg 01/25/22 15:27 Acetaminophen 500 Mg Tablet PO Q4H PRN Mild Pain (1-3) or Fever Hydrocodone Bitart/Acetaminophen 1 tab 01/26/22 08:47 01/29/22 11:22 Hydrocodone/Acetaminophen (*Crx) 10-325 Mg Tablet PO 1 tab Q4H PRN Administration Pain Rated 7-10 Dextrose 12.5 gm 01/27/22 11:22 Dextrose 50% 2
[2022-01-29 16:00] VITALS: BP 151/80; PULSE 100; RESP 18; TEMP 36.8; O2SAT 96
[2022-01-29 17:18] LABS: Glucose Point of Care 209 mg/dl (65-105)
[2022-01-29] MEDS: INSULIN GLARGINE (*BKC) 100 UNITS/ML 10 UNITS SUB-Q (21:04)
[2022-01-29 21:05] LABS: Glucose Point of Care 189 mg/dl (65-105)
[2022-01-29] MEDS: LORazepam INJ (*CRX) 2 MG/ML VIAL 1 MG IV PUSH (21:32)
[2022-01-30] VITALS: BP 156/69; PULSE 94; RESP 18; TEMP 36.5; O2SAT 100
[2022-01-30] MEDS: HYDROcodone/acetaminophen (*CRX) 10-325 MG TABLET 1 TAB PO ×5 (02:29→23:03)
--- NOTE | 2022-01-30 04:08 | PC.NURSE ---
Patient called for nurse to bring 2 sheets and 2 blankets to him. Entered room and patient stood for bed to be changed due to drainage from right buttock. Total bed change done. Large amount of thick, yellow/bloody drainage noted on pad, top and bottom sheets. When patient stood for bed to be changed the drainage was running down his legs. Patient then got in shower while bed was changed. Patient stated there was a large amount of drainage that came out of buttock in the shower. Wound started draining again before patient could get laid down and once he did lay down and nurse was cleaning the wound, the drainage continued in a large amount. Patient's right buttock didn't look as large as earlier in the shift. The deep redness continues to the area. Extra absorbent pad placed on bed and ABD placed over draining area. Patient tolerated well. Call light in reach.
--- NOTE | 2022-01-30 06:04 | PC.NURSE ---
Went to patient's room to discontinue schilling catheter and patient requests that it be left in until right after this dose of Vancomycin is finished.
--- NOTE | 2022-01-30 07:10 | PC.NURSE ---
Hogshead Hand removed 16 fr schilling catheter. Patient tolerated well. Hogshead Hand educated patient to void in urinal and use call light to let nurse measure urine to ensure patient was no longer having trouble voiding.
[2022-01-30 07:50] LABS: Glucose Point of Care 210 mg/dl (65-105)
[2022-01-30 08:00] VITALS: BP 138/78; PULSE 91; RESP 16; TEMP 36.2; O2SAT 95
[2022-01-30 08:33] LABS: Hematocrit 42.1 % (40.0-54.0); Hemoglobin 14.8 g/dL (14.0-18.0); Mean Corpuscular HGB Conc 35.2 g/dL (32.0-36.0); Mean Corpuscular Volume 85.2 fL (78.0-102.0); Mean Platelet Volume 9.4 fl (8.7-11.0); Platelet Count Result 379 K/mm3 (150-420); Red Blood Count 4.94 M/mm3 (4.70-6.10); Red Cell Distribution Width 11.9 % (11.6-14.4)
[2022-01-30 08:38] LABS: White Blood Count 22.9 K/mm3 (4.8-10.8)
[2022-01-30] MEDS: ENOXAPARIN 40 MG/0.4 ML SYRINGE SUB-Q (08:40)
[2022-01-30] MEDS: SACCHAROMYCES BOULARDII 250 MG CAPSULE PO ×3 (08:43→16:57)
[2022-01-30] MEDS: POTASSIUM CHLORIDE 20 MEQ TABLET 40 MEQ PO (08:43)
[2022-01-30] MEDS: FAMOTIDINE 20 MG TABLET PO (08:44)
[2022-01-30] MEDS: EMPAGLIFLOZIN 10 MG TABLET PO (08:45)
[2022-01-30 08:50] LABS: Alanine Aminotransferase 55 U/L (16-63); Alkaline Phosphatase 263 U/L (46-116); Anion Gap 11 mmol/L (8-16); Aspartate Amino Transferase 33 U/L (15-37); Bilirubin,Total 0.9 mg/dL (0.00-1.00); Blood Urea Nitrogen 15 mg/dL (7-18); Calcium 8.6 mg/dL (8.5-10.1); Carbon Dioxide 27 mmol/L (21-32); Chloride 94 mmol/L (98-108); Estimated CRCL calculation 81 ml/min; Estimated Glomerular Filt Rate > 60; Glucose 195 mg/dL (70-99); Osmolality Calculated 279 mOsm/kg (285-295); Potassium 3.5 mmol/L (3.5-5.1); Sodium 132 mmol/L (136-145); Total Protein 8.5 g/dL (6.4-8.2)
[2022-01-30 11:42] LABS: Glucose Point of Care 154 mg/dl (65-105)
[2022-01-30] MEDS: metroNIDAZOLE 500 MG/ISO 100ML 500 MG/100 ML BAG 100 MG IVPB ×2 (12:09→19:57)
[2022-01-30 13:39] LABS: Add Urine Microscopic? YES; Appearance Urine Clear (Clear); Bilirubin Urine Negative (Negative); Blood Urine 2+ (Negative); Color Urine Light Yellow (Yellow); Glucose Urine UA 3+ (Negative); Ketones Urine 2+ (Negative); Leukocyte Esterase Ur Negative (Negative); Nitrate Urine Negative (Negative); Protein Urine Negative (Negative)
[2022-01-30 13:45] LABS: Bacteria Urine Trace /hpf; WBC Urine None seen /hpf (0-3)
--- NOTE | 2022-01-30 14:47 | PC.NURSE ---
1215 schilling inserted without diff. immediate return of 800 ml yellow urine. tolerated well. chucky rn
--- NOTE | 2022-01-30 15:07 | WPDPN ---
Progress Note: A&P Assessment and Plan (1) Cellulitis: Code(s): L03.90 - Cellulitis, unspecified Status: Acute Assessment and Plan: imaging indicates right buttock and perineum cellulitis patient was given Flagyl along with vancomycin and cefepime in the emergency department. patient has allergy to penicillin did not have a reaction to cefepime. if patient condition did not improve we were asked that the pain. consult Infectious Disease and assist as recommendations for now we will do vancomycin patient febrile with elevated white count 17.7>19.8 continue wound care lactic acid 1.2 sitz bath ID today see procedure note Culture shows MRSA and VAncomycin is adequate treatment for CS Added Flagyl (2) Electrolyte imbalance: Code(s): E87.8 - Other disorders of electrolyte and fluid balance, not elsewhere classified Status: Acute Assessment and Plan: potassium 2.9 , sodium 133 replaces supplement CMP in a.m. (3) Diabetes mellitus: Code(s): E11.9 - Type 2 diabetes mellitus without complications Status: Acute Assessment and Plan: newly diagnosed A1c 11.0, blood sugar 252 started diabetic diet with Accu-Cheks sliding scale and hypoglycemic protocol will start glipizide educated on diabetes will need to follow up with primary care physician increased insulin and added lantus (4) Urine retention: Code(s): R33.9 - Retention of urine, unspecified Status: Acute Assessment and Plan: Schilling removed and replaced post residual of 800 mls may need to discharge with catheter. Subjective Date/time seen: 01/30/22 15:07 Interval history: Patient scrotum area is looking a lot better with copious amount of drainage noted with the showers 2-3 x a day. We have added Flagyl to patient for possible some anerobic coverage to ensure there is nothing else growing today his WBC went up to 22.9 although he is showing no s/s of worsening infection. Patient states the pain is a lot better and he claim that he is feeling better and questioning as to when he is leaving. we will consider possible tomorrow not sure at this time. Patient schilling was removed and he has not been able to urinate. I did bladder scan him post urinate and he had over 800 ml noted. Schilling placed back and will more than likey need to be discharged with schilling catheter in place and follow up with urology at this time. Patient continues to improve he is eating and drinking at this time. blood sugars are the high of 216 and as low as 154 we will continue to monitor and to improve patient. Exam Narrative: GENERAL: This is a well-nourished, well-developed patient, in no apparent distress. HEAD: normocephalic, atraumatic. EYES: PERRL. Sclera clear/white. Vision is grossly intact. EARS: External ears ghazala Hearing grossly intact. NOSE: External nose normal with no obvious nasal discharge THROAT: Mucous membranes moist RESPIRATORY: Clear to auscultation. Breath sounds equal bilaterally. No wheezes, rales, or rhonchi. GASTROINTESTINAL: Abdomen soft, non-tender, buttock swollen escorted enlarged and engorged area is bruised and boggy not as swollen in groin area schilling remains in place with clear yellow urine note.d SKIN: right buttock and perineum with edema and erythema tender to touch brownish drainage NEURO: awake, alert, and oriented to person, place and time. There were no obvious focal neurologic abnormalities. EXTREMITIES: Normal range of motion. No edema. No calf tenderness. Objective Data Vital Signs Vital Signs: Vital Signs - 24 hr 01/29/22 16:00 01/30/22 00:00 01/30/22 08:00 Temperature 98.3 F 97.7 F Pulse Rate 100 94 91 Respiratory Rate 18 18 16 Blood Pressure 151/80 H 156/69 H Pulse Oximetry 96 100 95 Oxygen Delivery Room Air Room Air Room Air 01/30/22 08:00 Temperature 97.2 F L Pulse Rate 91 Respiratory Rate 16 Blood Pressure 138/78 Pulse Oxi
[2022-01-30 16:00] VITALS: PULSE 90; RESP 16; TEMP 36.6; O2SAT 96
[2022-01-30 16:57] LABS: Glucose Point of Care 229 mg/dl (65-105)
--- NOTE | 2022-01-30 17:17 | PC.NURSE ---
Patient's wound continues to drain copious amounts of serous puss. Patient has showered x3 and has 1 full bed change and multiple clean sheets and pads. Area around wound continues to shrink.
[2022-01-30] MEDS: traMADol HCL (*CRX) 50 MG TABLET PO (19:56)
[2022-01-30 21:14] LABS: Vancomycin Trough 19.7 ug/mL (10.0-15.0)
[2022-01-30] MEDS: INSULIN GLARGINE (*BKC) 100 UNITS/ML 10 UNITS SUB-Q (21:18)
[2022-01-30] MEDS: LORazepam INJ (*CRX) 2 MG/ML VIAL 1 MG IV PUSH (21:18)
[2022-01-30] MEDS: DOCUSATE SODIUM 100 MG CAPSULE PO (21:19)
[2022-01-30 21:38] LABS: Glucose Point of Care 186 mg/dl (65-105)
[2022-01-30 23:14] VITALS: BP 143/85; PULSE 94; RESP 16; TEMP 36.3; O2SAT 96
[2022-01-31] MEDS: metroNIDAZOLE 500 MG/ISO 100ML 500 MG/100 ML BAG 100 MG IVPB (03:20)
[2022-01-31] MEDS: HYDROcodone/acetaminophen (*CRX) 10-325 MG TABLET 1 TAB PO ×4 (03:38→20:52)
--- NOTE | 2022-01-31 03:42 | PC.NURSE ---
Pt called nurses station stating he quite a bit of drainage from his wound. Pt ambulated independently to the shower to clean himself off while this RN changed the bed linens w/clean, dry ones. Pt complained of pain once finished w/his shower, and so was given a prn pain med per his pain score. Soiled linens removed from room and pt was brought fresh ice water. Side railsx2 and call light w/in reach w/bed in lowest position for pt safety.
[2022-01-31 05:34] LABS: Hematocrit 38.7 % (40.0-54.0); Hemoglobin 13.6 g/dL (14.0-18.0); Mean Corpuscular HGB Conc 35.1 g/dL (32.0-36.0); Mean Corpuscular Hemoglobin 29.9 pg (27.0-31.0); Mean Corpuscular Volume 85.1 fL (78.0-102.0); Mean Platelet Volume 9.6 fl (8.7-11.0); Platelet Count Result 315 K/mm3 (150-420); Red Blood Count 4.55 M/mm3 (4.70-6.10); Red Cell Distribution Width 11.8 % (11.6-14.4); White Blood Count 16.2 K/mm3 (4.8-10.8)
[2022-01-31 05:47] LABS: Anion Gap 8 mmol/L (8-16); Blood Urea Nitrogen 14 mg/dL (7-18); Calcium 8.2 mg/dL (8.5-10.1); Carbon Dioxide 26 mmol/L (21-32); Chloride 95 mmol/L (98-108); Estimated CRCL calculation 88 ml/min; Estimated Glomerular Filt Rate > 60; Glucose 173 mg/dL (70-99); Osmolality Calculated 272 mOsm/kg (285-295); Potassium 3.2 mmol/L (3.5-5.1); Sodium 129 mmol/L (136-145)
[2022-01-31 08:00] VITALS: BP 134/75; PULSE 97; RESP 17; TEMP 36.3; O2SAT 96
[2022-01-31] MEDS: EMPAGLIFLOZIN 10 MG TABLET PO (08:57)
[2022-01-31] MEDS: SACCHAROMYCES BOULARDII 250 MG CAPSULE PO ×3 (08:57→16:58)
[2022-01-31] MEDS: FAMOTIDINE 20 MG TABLET PO (08:57)
[2022-01-31] MEDS: POTASSIUM CHLORIDE 20 MEQ TABLET 40 MEQ PO (08:57)
[2022-01-31] MEDS: ENOXAPARIN 40 MG/0.4 ML SYRINGE SUB-Q (08:58)
[2022-01-31 12:02] LABS: Glucose Point of Care 170 mg/dl (65-105)
--- NOTE | 2022-01-31 13:10 | WPDPN ---
Progress Note: A&P Assessment and Plan (1) Cellulitis: Code(s): L03.90 - Cellulitis, unspecified Status: Acute Assessment and Plan: imaging indicates right buttock and perineum cellulitis patient was given Flagyl along with vancomycin and cefepime in the emergency department. patient has allergy to penicillin did not have a reaction to cefepime. if patient condition did not improve we were asked that the pain. consult Infectious Disease and assist as recommendations for now we will do vancomycin patient febrile with elevated white count 17.7>19.8 continue wound care lactic acid 1.2 sitz bath ID today see procedure note Culture shows MRSA and VAncomycin is adequate treatment for CS Added Flagyl changed to oral antibiotic s (2) Electrolyte imbalance: Code(s): E87.8 - Other disorders of electrolyte and fluid balance, not elsewhere classified Status: Acute Assessment and Plan: potassium 2.9 , sodium 133 replaces supplement CMP in a.m. (3) Diabetes mellitus: Code(s): E11.9 - Type 2 diabetes mellitus without complications Status: Acute Assessment and Plan: newly diagnosed A1c 11.0, blood sugar 252 started diabetic diet with Accu-Cheks sliding scale and hypoglycemic protocol will start glipizide educated on diabetes will need to follow up with primary care physician increased insulin and added lantus (4) Urine retention: Code(s): R33.9 - Retention of urine, unspecified Status: Acute Assessment and Plan: Schilling removed and replaced post residual of 800 mls may need to discharge with catheter. Subjective Date/time seen: 01/31/22 13:10 Interval history: Patient is being required to inject himself with insulin and we are discussing plans for home and he has been place on oral medication and will see how his wound does in the morning for plans for discharge in the morning. Exam Narrative: GENERAL: This is a well-nourished, well-developed patient, in no apparent distress. HEAD: normocephalic, atraumatic. EYES: PERRL. Sclera clear/white. Vision is grossly intact. EARS: External ears ghazala Hearing grossly intact. NOSE: External nose normal with no obvious nasal discharge THROAT: Mucous membranes moist RESPIRATORY: Clear to auscultation. Breath sounds equal bilaterally. No wheezes, rales, or rhonchi. GASTROINTESTINAL: Abdomen soft, non-tender, buttock swollen escorted enlarged and engorged area is bruised and boggy not as swollen in groin area schilling remains in place with clear yellow urine note.d SKIN: right buttock and perineum with edema and erythema tender to touch brownish drainage NEURO: awake, alert, and oriented to person, place and time. There were no obvious focal neurologic abnormalities. EXTREMITIES: Normal range of motion. No edema. No calf tenderness. Objective Data Vital Signs Vital Signs: Vital Signs - 24 hr 01/30/22 16:00 01/30/22 23:14 01/31/22 08:00 Temperature 97.9 F 97.4 F L 97.3 F L Pulse Rate 90 94 97 Respiratory Rate 16 16 17 Blood Pressure 143/85 H 134/75 Pulse Oximetry 96 96 96 Oxygen Delivery Room Air Room Air Room Air Intake/Output Intake/Output: Intake & Output 01/28/22 01/29/22 01/30/22 01/31/22 23:59 23:59 23:59 23:59 Intake Total 5890 4440 5750 1170 Output Total 5300 6350 5950 1675 Balance 590 -9840 -200 -505 Meds/Results Medications: Active Medications Generic Name Dose Route Start Last Admin Trade Name Freq PRN Reason Stop Dose Admin Acetaminophen 1,000 mg 01/25/22 15:27 Acetaminophen 500 Mg Tablet PO Q4H PRN Mild Pain (1-3) or Fever Hydrocodone Bitart/Acetaminophen 1 tab 01/26/22 08:47 01/31/22 08:57 Hydrocodone/Acetaminophen (*Crx) 10-325 Mg Tablet PO 1 tab Q4H PRN Administration Pain Rated 7-10 Dextrose 12.5 gm 01/27/22 11:22 Dextrose 50% 25 Gm/50 Ml Syringe IV PUSH PRN PRN Hypoglycemia
[2022-01-31] MEDS: TAMSULOSIN HCL 0.4 MG CAPSULE PO (13:11)
[2022-01-31] MEDS: metroNIDAZOLE 250 MG TABLET 500 MG PO ×2 (13:11→20:51)
[2022-01-31 16:00] VITALS: BP 137/84; PULSE 97; TEMP 36.1; O2SAT 96
[2022-01-31 16:45] LABS: Glucose Point of Care 198 mg/dl (65-105)
[2022-01-31] MEDS: traMADol HCL (*CRX) 50 MG TABLET PO (19:02)
[2022-01-31 20:00] VITALS: PULSE 97; RESP 17; O2SAT 96
[2022-01-31] MEDS: DOXYCYCLINE HYCLATE 100 MG TABLET PO (20:52)
[2022-01-31] MEDS: traZODone HCL 50 MG TABLET 100 MG PO (20:52)
[2022-01-31] MEDS: INSULIN GLARGINE (*BKC) 100 UNITS/ML 10 UNITS SUB-Q (21:00)
[2022-01-31 21:01] LABS: Glucose Point of Care 146 mg/dl (65-105)
[2022-01-31 23:56] VITALS: BP 154/83; PULSE 106; RESP 17; TEMP 36.3; O2SAT 96
[2022-02-01] MEDS: HYDROcodone/acetaminophen (*CRX) 10-325 MG TABLET 1 TAB PO ×3 (01:19→09:36)
[2022-02-01 05:08] LABS: Hematocrit 42.5 % (40.0-54.0); Hemoglobin 14.7 g/dL (14.0-18.0); Mean Corpuscular HGB Conc 34.6 g/dL (32.0-36.0); Mean Corpuscular Hemoglobin 29.6 pg (27.0-31.0); Mean Corpuscular Volume 85.7 fL (78.0-102.0); Mean Platelet Volume 9.8 fl (8.7-11.0); Platelet Count Result 436 K/mm3 (150-420); Red Blood Count 4.96 M/mm3 (4.70-6.10); Red Cell Distribution Width 11.9 % (11.6-14.4); White Blood Count 15.3 K/mm3 (4.8-10.8)
[2022-02-01] MEDS: metroNIDAZOLE 250 MG TABLET 500 MG PO ×2 (05:17→12:09)
[2022-02-01 05:19] LABS: Anion Gap 12 mmol/L (8-16); Blood Urea Nitrogen 18 mg/dL (7-18); Calcium 8.8 mg/dL (8.5-10.1); Carbon Dioxide 26 mmol/L (21-32); Chloride 98 mmol/L (98-108); Estimated CRCL calculation 74 ml/min; Estimated Glomerular Filt Rate 57; Glucose 188 mg/dL (70-99); Osmolality Calculated 288 mOsm/kg (285-295); Potassium 3.8 mmol/L (3.5-5.1); Sodium 136 mmol/L (136-145)
[2022-02-01] MEDS: DOCUSATE SODIUM 100 MG CAPSULE PO (05:20)
[2022-02-01 08:00] VITALS: BP 142/81; PULSE 98; RESP 16; TEMP 36.6; O2SAT 97
[2022-02-01 09:04] LABS: Prostate Specific Antigen 0.7 ng/mL (< OR = 4.0)
[2022-02-01] MEDS: EMPAGLIFLOZIN 10 MG TABLET PO (09:35)
[2022-02-01] MEDS: SACCHAROMYCES BOULARDII 250 MG CAPSULE PO ×2 (09:35→12:09)
[2022-02-01] MEDS: DOXYCYCLINE HYCLATE 100 MG TABLET PO (09:36)
[2022-02-01] MEDS: FAMOTIDINE 20 MG TABLET PO (09:36)
[2022-02-01] MEDS: TAMSULOSIN HCL 0.4 MG CAPSULE PO (09:36)
[2022-02-01] MEDS: POTASSIUM CHLORIDE 20 MEQ TABLET 40 MEQ PO (09:36)
--- NOTE | 2022-02-01 10:41 | PM.DS ---
DS: Admitting Diagnosis Discharge Date 02/01/2022 Admitting Diagnosis Cellulitis w abscess left buttock, New onset Diabetes Type II DS: Discharge Diagnosis Discharge Diagnosis (1) Urine retention: Code(s): R33.9 - Retention of urine, unspecified Status: Acute Assessment and Plan: Rollins removed and replaced post residual of 800 mls may need to discharge with catheter. teching on how to care for catheter and leg bag (2) Diabetes mellitus: Code(s): E11.9 - Type 2 diabetes mellitus without complications Status: Acute Assessment and Plan: newly diagnosed A1c 11.0, blood sugar 252 started diabetic diet with Accu-Cheks sliding scale and hypoglycemic protocol will start glipizide educated on diabetes will need to follow up with primary care physician increased insulin and added lantus needs to follow up reid (3) Electrolyte imbalance: Code(s): E87.8 - Other disorders of electrolyte and fluid balance, not elsewhere classified Status: Acute Assessment and Plan: potassium 2.9 , sodium 133 replaces supplement CMP in a.m. resolving (4) Cellulitis: Code(s): L03.90 - Cellulitis, unspecified Status: Acute Assessment and Plan: imaging indicates right buttock and perineum cellulitis patient was given Flagyl along with vancomycin and cefepime in the emergency department. patient has allergy to penicillin did not have a reaction to cefepime. if patient condition did not improve we were asked that the pain. consult Infectious Disease and assist as recommendations for now we will do vancomycin patient febrile with elevated white count 17.7>19.8>15 continue wound care lactic acid 1.2 sitz bath ID today see procedure note Culture shows MRSA and VAncomycin is adequate treatment for CS Added Flagyl changed to oral antibiotic s labs continue to improve wound looks good drainage is well Wound Clinic Appointment on February 15 (5) Abscess of left buttock: Code(s): L02.31 - Cutaneous abscess of buttock Status: Acute Assessment and Plan: Incision and drainage 2x2 applied to butt cheeks someone to monitor you wound to ensure it not worsening continue shower frequently Take all of your medication Plan Patient not wanting us to schedule appointment I have had a long conversation with patient about his follow up care and my concern if he does not follow up and the importance. Patient explained he is worried about the cost. I explained to patient that this could be detrimental to the rest of his life. DS: Summary Hospital Course Reason for hospitalization: new onset diabetes type 2, cellulitis with abscess urinary retention Hospital Course: this is a 51-year-old male that was admitted to the hospital with new onset diabetes type 2 hemoglobin A1c was 11.6. Patient was admitted with the left-sided buttocks abscess with the elevated white blood count that initially was 22 patient was febrile prior to arrival that came down with oral antipyretics. Patient was treated with IV fluids, IV antibiotics vancomycin and eventually started on Flagyl patient had wound culture that came back positive for Staph coccus aureus which sensitivity showed that was treated with vancomycin I personally completed incision and drainage which started to drink copious amount brownish foul-smelling secretions closer to his scrotum. Patient has several episodes where he started to have trouble urinating was only urinating approximately 50-100 cc of urine at a time postvoid bladder scan showed over 800 mL of Marilin urine. Once Rollins catheter was placed he had almost a L of fluid 2 attempts were noted to remove the Rollins catheter and retention remain patient was started on oral Flomax and will need to follow up with Urology. Patient also was started on Lantus as well as some Jardiance and insulin blood sugars prior to discharge range
[2022-02-01 11:43] LABS: Glucose Point of Care 220 mg/dl (65-105)
--- NOTE | 2022-02-01 14:40 | PC.NURSE ---
Discharge instructions reviewed with patient and sister. They were educated on schilling care, leg bag use, and medications. All questions were answered. Pt was transported via wheelchair to front of hospital for discharge.
--- NOTE | 2022-02-02 11:30 | PCCCNOTE ---
Pt called and states he has accepting PCP but not able to be seen until 02/25/2022. Pt requests help finding someone to see him and take his schilling cath out. Per Ellen Shields was on-call at [facility] when pt was seen in ED and he would see him for a 1 time visit. Appt made for 02/03/2022 at 1430 at the office located at [address] [place] [address] . Pt was called back and give appointment information, location and phone number.
--- NOTE | 2022-02-03 09:47 | PC.NURSE ---
Pt states he received and understood his discharge instructions. Pt has no other comments.
[2022-02-23 15:31] LABS: Glucose Point of Care 195 mg/dl (65-105)
== END 2022-02-01 14:45 | disposition home or self-care (01) | DRG 603 ==
PROVIDERS: Nurse Practitioner; Admitting Provider Internal Medicine; Visit Provider Nurse Practitioner Family
DX: L03.317 Cellulitis of buttock (principal); L03.315 Cellulitis of perineum; E11.9 Type 2 diabetes mellitus without complications; E87.8 Other disorders of electrolyte and fluid balance, not elsewhere classified; B95.62 Methicillin resistant Staphylococcus aureus infection as the cause of diseases classified elsewhere; R33.9 Retention of urine, unspecified
CPT/HCPCS: 36415; 80048; 80053; 80202; 81001; 82565; 82948; 83735; 84153; 85027; 87070; 87147; 87186; 87205; 97161; 97165; A9270; G0378; J1170; J1650; J1815; J2060; J3370

== ENCOUNTER 2022-02-03 15:26 | Outpatient (CLI) | payer BC, SELFPAY ==
[2022-02-03 18:41] LABS: Alanine Aminotransferase 74 U/L (6-50); Albumin Level 4.4 g/dL (3.5-5.1); Alkaline Phosphatase 223 U/L (38-126); Anion Gap 11 mmol/L (8-16); Aspartate Amino Transferase 82 U/L (17-59); Bilirubin,Total 0.6 mg/dL (0.2-1.3); Blood Urea Nitrogen 23 mg/dL (9-20); Carbon Dioxide 26 mmol/L (22-30); Chloride 100 mmol/L (98-107); Estimated Glomerular Filt Rate > 60; Glucose 250 mg/dL (65-110); Potassium 4.6 mmol/L (3.4-5.0); Sodium 137 mmol/L (137-145)
[2022-02-03 18:46] LABS: Add Urine Microscopic? YES; Appearance Urine Cloudy (Clear); Bilirubin Urine Negative (Negative); Blood Urine 2+ (Negative); Color Urine Light Yellow (Yellow); Glucose Urine UA 3+ mg/dL (Negative); Ketones Urine 1+ mg/dL (Negative); Leukocyte Esterase Ur Negative LEU/UL (NEGATIVE); Nitrate Urine Negative (Negative); Protein Urine Trace mg/dL (Negative); Specific Grav Ur 1.025 (1.001-1.035); Urobilinogen Urine 0.2 mg/dL (<2.0); pH Urine 5.5 (5.0-9.0)
[2022-02-03 19:15] LABS: Bacteria Urine Trace /hpf; Mucus Urine Rare /lpf; RBC Urine >75 /hpf (0-2); Uric Acid Crystals Urine Many /hpf; WBC Urine 0-3 /hpf (0-3)
== END 2022-02-03 15:27 | disposition home or self-care (01) ==
LOC: ANHBWCLAB 15:27
PROVIDERS: PCP Family Medicine; Visit Provider Family Medicine
DX: R33.9 Retention of urine, unspecified (principal); E87.6 Hypokalemia
CPT/HCPCS: 36415; 80053; 81001